=== PATIENT | male | born 1985 | race Caucasian/White ===

== ENCOUNTER 2018-09-29 09:03 | Inpatient (IN) ==
[2018-09-29] MEDS ORDERED: VANCOMYCIN 1 GM/NS 1 GM/250 ML IVPB IV ONE (09:16)
[2018-09-29] MEDS ORDERED: TORADOL IV ONE (09:16)
[2018-09-29 09:48] LABS: URINE SOURCE CLEAN CATCH
[2018-09-29 09:56] LABS: BASO# 0.05 X1000 (0.0-0.2); BASO% 0.3 % (0.0-0.8); EOS# 0.82 X1000 (0.0-0.7); EOS% 4.7 % (0.0-10.0); HEMATOCRIT 40.1 % (42.0-52.0); HEMOGLOBIN 13.2 g/dL (14.0-18.0); IMM GRAN# 0.07 X1000 (0.0-0.04); IMM GRAN% 0.4 % (0.0-0.5); LYMPH# 2.84 X1000 (1.2-3.4); LYMPH% 16.4 % (20.5-51.1); MCH 28.8 PG (27-31); MCHC 32.9 g/dL (33-37); MCV 87.6 FL (81-99); MONO# 1.39 X1000 (0.11-0.59); MPV 9.1 FL (7.4-10.4); NEUT# 12.11 X1000 (1.4-6.5); NEUT% 70.2 % (42.2-75.2); PLT 507 X1000 (130-400); RBC 4.58 XMIL (4.7-6.1); RDW 12.2 % (11.5-14.5); WBC 17.28 X1000 (4.8-10.8)
[2018-09-29 09:59] LABS: BILIRUBIN URINE NEGATIVE (NEGATIVE); BLOOD URINE NEGATIVE (NEGATIVE); COLOR YELLOW; GLUCOSE URINE NEGATIVE (NEGATIVE); KETONE URINE NEGATIVE (NEGATIVE); LEUKOCYTES URINE NEGATIVE (NEGATIVE); NITRITE URINE NEGATIVE (NEGATIVE); PROTEIN URINE TRACE mg/dL (NEGATIVE); SP GRAVITY URINE 1.024; TURBIDITY URINE CLEAR (CLEAR); UR EPITHELIAL CELLS <10 /HPF (<10); URINE BACTERIA NEGATIVE /HPF; URINE RBC <10 /HPF (<10); URINE WBC <10 /HPF (<10); UROBILINOGEN URINE 2 mg/dL (NORMAL)
[2018-09-29 10:10] LABS: AGAP 11; BUN 16 mg/dL (8-22); CHLORIDE 101 mmol/L (98-107); COSMO 277; CREATININE 0.9 mg/dL (0.7-1.2); ESTIMATED GFR > 60; GLUCOSE 104 mg/dL (70-104); POTASSIUM 4.1 mmol/L (3.5-5.1); SODIUM 138 mmol/L (136-145); TCO2 26 mmol/L (25-35)
[2018-09-29 10:29] LABS: C REACTIVE PROT QUANT 88.68 mg/L (0.00-5.00)
[2018-09-29] MEDS ORDERED: CLINDAMYCIN 900 MG/NS 900 MG/50 ML IVPB IV ONE (10:51)
--- NOTE | 2018-09-29 10:51 | Diag Imaging Result Doc PS360 ---
EXAM: US SCROTUM INDICATION: evaluate wound for abscess TECHNIQUE: COMPARISON: None. FINDINGS: The testicles are normal in echotexture with no discrete testicular cyst or mass. The right testicle measures 4.3 cm and the left testicle measures 4.0 cm in the greatest dimensions. Both testicles exhibit normal Doppler flow. The epididymides are unremarkable. There are bilateral small hydroceles. The patient is postop from a vasectomy 3 weeks ago. At the site of the incision on the right, there is soft tissue edema and there is a complex fluid collection measuring 2.0 x 1.4 x 1.6 cm. Abscess versus postsurgical seroma containing proteinaceous debris should be considered. IMPRESSION: 1.Soft tissue edema at the recent vasectomy surgical incision on the right with a small complex fluid collection. Abscess cannot be excluded. Please correlate clinically. 2.Small bilateral hydroceles. 3.The testicles are unremarkable. Electronically signed by Johnnie Tanner 09/29/2018 10:48 AM
[2018-09-29] MEDS ORDERED: CLINDAMYCIN 900 MG/D5W 900 MG/50 ML IVPB IV ONE (11:00)
--- NOTE | 2018-09-29 11:16 | PROVIDER DOCUMENTATION ---
This chart was entered by Ava Hansen Scribe, acting as scribe for Avery Hines MD. HPI-Male Problem - General Chief Complaint: Male Stated Complaint: POST OP COMPLAINT Time Seen by Provider: 09/29/18 09:11 Source: patient Allergies/Adverse Reactions: Patient Allergies Allergy/AdvReac Type Severity Reaction Status Date / Time amoxicillin Allergy Unknown Verified 11/07/17 20:03 Home Medications: Home Medication List Medication Instructions Recorded Confirmed Last Taken Type Bupropion HCl [Bupropion HCl Sr] 400 mg PO DAILY 09/25/16 04/13/18 09/25/16 08:00 History Omeprazole 40 mg PO DAILY 10 Days #10 04/13/18 Unknown Rx capsule.dr - History of Present Illness-Male Nature of Presenting Problem: 33 y/o male presents to ED with testicular swelling, redness, pain, and incision drainage onset 3 weeks ago. Pt is 3 weeks postop from vasectomy by Dr. Cavazos. Pt states he has had several followup appointments due to his symptoms and was put on toradol and bactrim. Pt reports the discharge has become bloody from R posterior incision. Pt is alert and oriented. Location of Complaint: reports: scrotal Radiation: reports: none Quality of Pain: reports: sharp Severity in ED: reports: moderate, severe Onset/Duration: reports: other (3 weeks ago) Timing: reports: still present Context/Activities at Onset: reports: other (3 weeks postop vasectomy) Urinary Symptoms: reports: no symptoms Associated Symptoms: reports: pain/swelling in testicle Associated Symptoms: reports: other (testicular swelling, redness, pain; incision drainage) Similar Symptoms Previously?: No Recently seen or treated by another doctor?: Yes (several FU with Dr. Cavazos) Review of Systems - Adult - REVIEW OF SYSTEMS - ADULT Constitutional: denies: chills, fever Eyes: reports: no symptoms reported Ears, Nose, Mouth & Throat: reports: no symptoms reported Cardiovascular: denies: chest pain, palpitations Respiratory: denies: cough, shortness of breath Gastrointestinal: denies: abdominal pain, diarrhea, nausea, vomiting Genitourinary: reports: discharge (from incision to R posterior scrotum), other (testicular/scrotal swelling, pain, redness) Musculoskeletal: denies: back pain, joint pain Integumentary: reports: no symptoms reported Neurological: denies: dizziness/vertigo, seizure Psychiatric: reports: no symptoms reported Endocrine: reports: no symptoms reported Hematologic/Lymphatic: reports: no symptoms reported Allergic/Immunologic: reports: no symptoms reported All Other Systems: Reviewed and Negative Past History - Adult - PAST MEDICAL HISTORY-ADULT Review of Records: reports: Old Records Reviewed, Nursing Assessment Review, Medications Reviewed Major Childhood Illnesses: reports: denies history Cardiovascular: reports: denies history Respiratory: reports: denies history Gastrointestinal: reports: GERD Obstetrical/Gynecological: reports: denies history Genitourinary: reports: denies history Musculoskeletal: reports: denies history Neurological: reports: denies history Psychiatric: reports: depression, other (ADHD) Endocrine/Immune: reports: denies history Other Conditions: reports: denies history - PRIOR SURGERIES/PROCEDURES Surgical/Procedure History: reports: reviewed, not pertinent, other ([place] teeth extractions) - IMMUNIZATION STATUS Childhood Immunizations: See Nurse Assessment Flu Vaccine: See Nurse Assessment - FAMILY HISTORY Family History: reviewed, not pertinent - SOCIAL HISTORY Smoking: non-smoker Substance Use: none/never Alcohol Use Frequency: never Living Situation: family Physical Exam-General - PHYSICAL EXAM-ADULT Initial Vital Signs Reviewed: Yes - CONSTITUTIONAL General Appearance: appears well, alert, no apparent distress - EYES Eyes: PERRL/EOMI, pink conjunctivae - HEAD, EARS, NOSE, MOUTH & THROAT HENMT: normocephalic/atraumatic, moist mucous membranes, normal ENT inspection - NECK Neck: non-tender, full range of motion - RESPIRATORY Respiratory: chest non-tender, lungs clear, normal breath sounds - CARDIOVASCULAR Cardiovascular: normal peripheral pulses, regular rate, rhythm - GASTROINTESTINAL (ABDOMEN) Abdominal Exam: normal bowel sounds, non tender, soft - GENITOURINARY Male Genitalia: no hernia, erythema (scrotal), scrotal swelling, testicular tenderness, other (firm scrotum; R more firm than L with induration and without fluctuance; 5 mm area of serosanguinous drainage to R posterior scrotum) Rectal Exam: deferred - MUSCULOSKELETAL Back Exam: normal inspection, no CVA tenderness Extremity: normal range of motion, non-tender, normal gait - SKIN Integumentary: normal color, warm/dry - NEUROLOGIC Neurologic: grossly normal - PSYCHIATRIC Psych/Mental Status: normal mood/affect, normal thought content, normal thought process Progress - PLAN OF CARE/RESULTS Progress/Plan/Lab Results: Vital Signs - 8 hr 09/29/18 09:05 Temperature 97.9 F Pulse Rate 94 H Respiratory Rate 18 Blood Pressure 121/76 O2 Sat by Pulse Oximetry 96 Laboratory Results - last 24 hr 09/29/18 09/29/18 09/29/18 09:33 09:33 09:33 WBC 17.28 H RBC 4.58 L Hgb 13.2 L Hct 40.1 L MCV 87.6 MCH 28.8 MCHC 32.9 L RDW Std Deviation 12.2 Plt Count 507 H MPV 9.1 Immature Gran % (Auto) 0.4 Neut % (Auto) 70.2 Lymph % (Auto) 16.4 L [place] % (Auto) 8.0 Eos % (Auto) 4.7 Baso % (Auto) 0.3 Immature Gran # (Auto) 0.07 H Neut # (Auto) 12.11 H Lymph # (Auto) 2.84 [place] # (Auto) 1.39 H Eos # (Auto) 0.82 H Baso # (Auto) 0.05 Sodium 138 Potassium 4.1 Chloride 101 Carbon Dioxide 26 Anion Gap 11 BUN 16 Creatinine 0.9 Estimated GFR/1.73 m2 > 60 BUN/Creatinine Ratio 18 Glucose 104 Calculated Osmolality 277 Calcium 9.0 C-Reactive Prot, Quant 88.68 H Plasma Lactate 0.8 Urine Source Urine Color Urine Turbidity Urine pH Ur Specific [place] Urine Protein Ur Glucose (Stick) Ur Ketones (Stick) Urine Blood Urine Nitrite Urine Bilirubin Urobilinogen Dipstick Urine Leukocytes Urine WBC (Auto) Urine RBC (Auto) U Epithel Cells (Auto) Urine Bacteria (Auto) 09/29/18 09:33 WBC RBC Hgb Hct MCV MCH MCHC RDW Std Deviation Plt Count MPV Immature Gran % (Auto) Neut % (Auto) Lymph % (Auto) [place] % (Auto) Eos % (Auto) Baso % (Auto) Immature Gran # (Auto) Neut # (Auto) Lymph # (Auto) [place] # (Auto) Eos # (Auto) Baso # (Auto) Sodium Potassium Chloride Carbon Dioxide Anion Gap BUN Creatinine Estimated GFR/1.73 m2 BUN/Creatinine Ratio Glucose Calculated Osmolality Calcium C-Reactive Prot, Quant Plasma Lactate Urine Source CLEAN CATCH Urine Color YELLOW Urine Turbidity CLEAR Urine pH 6.0 Ur Specific [place] 1.024 Urine Protein TRACE A Ur Glucose (Stick) NEGATIVE Ur Ketones (Stick) NEGATIVE Urine Blood NEGATIVE Urine Nitrite NEGATIVE Urine Bilirubin NEGATIVE Urobilinogen Dipstick 2 A Urine Leukocytes NEGATIVE Urine WBC (Auto) <10 Urine RBC (Auto) <10 U Epithel Cells (Auto) <10 Urine Bacteria (Auto) NEGATIVE Orders Category Date Time Status Saline Loc NOW Care 09/29/18 09:14 Active US SCROTUM [US] Stat Exams 09/29/18 09:16 Completed BLOOD CULTURE [BLDCUL] Stat Lab 09/29/18 09:30 Received BMP [BASIC METABOLIC PANEL] [CHEM] Stat Lab 09/29/18 09:33 Completed C REACTIVE PROT QUANT [CHEM] Stat Lab 09/29/18 09:33 Completed CBC WITH ELECTRONIC DIFF [HEME] Stat Lab 09/29/18 09:33 Completed LACTATE, PLASMA [CHEM] Stat Lab 09/29/18 09:33 Completed URINALYSIS W/POSS RFLX CULT [URINALYSIS] Stat Lab 09/29/18 09:33 Completed WOUND CULTURE INC GRAM STAIN [RM] Routine Lab 09/29/18 09:40 Received Clindamycin 900 mg/D5w Med 09/29/18 11:00 Active 900 mg in 50 ml IV NOW Ketorolac [Toradol] Med 09/29/18 09:16 Discontinued 30 mg IV NOW ONE Vancomycin 1 gm/Ns Med 09/29/18 09:16 Discontinued 1 gm in 250 ml IV NOW Result Diagrams: 09/29/18 09:33 09/29/18 09:33 - REASSESSMENT Reassessment #1 Time Reassessed: 11:15 Status: improving (decreased pain with meds given in ED. After cultures were obtained, daja Pineda/Telly.) - ULTRASOUND (By Radiology) 1 US Study: Scrotum Impression: Abnormal (FINDINGS: The testicles are normal in echotexture with no discrete testicular cyst or mass. The right testicle measures 4.3 cm and the left testicle measures 4.0 cm in the greatest dimensions. Both testicles exhibit normal Doppler flow. The epididymides are unremarkable. There are bilateral small hydroceles. The patient is postop from a vasectomy 3 weeks ago. At the site of the incision on the right, there is soft tissue edema and there is a complex fluid collection measuring 2.0 x 1.4 x 1.6 cm. Abscess versus postsurgical seroma containing proteinaceous debris should be considered. IMPRESSION: 1.Soft tissue edema at the recent vasectomy surgical incision on the right with a small complex fluid collection. Abscess cannot be excluded. Ple ase correlate clinically. 2.Small bilateral hydroceles. 3.The testicles are unremarkable. Electronically signed by Johnnie Tanner 09/29/2018 10:48 AM) - CONSULTS/PCP/HOSPITALIST Notification #1 *Consult/PCP/Hospitalist*: Dr. Christianson Time Discussed: 11:02 Reason/Comments: Scrotal abscess on US Consult Disposition: Admit #2 Consult: VEL Hernández for Dr. Hu Time Discussed: 11:07 Reason/Comments: Scrotal abscess on US Consult Disposition: Admit Departure - Departure Date of Disposition Decision: 09/29/18 Time of Disposition Decision: 11:10 DIAGNOSIS: Scrotal abscess Postoperative infection Qualifiers: Encounter type: initial encounter Postoperative infection type: unspecified type Qualified Code(s): T81.40XA - Infection following a procedure, unspecified, initial encounter Disposition: ADMITTED INPATIENT 09 Certified Medical Emergency: Emergent Condition: Stable Additional Freetext Instructions: ED Follow Up Instructions: You have been treated by a care provider in the Emergency Department. These instructions are being provided to you so you can have an understanding of how to care for yourself upon discharge. Upon discharge from the Emergency Departmen t, you are responsible for making arrangements for follow-up care by a physician of your choice. Take all prescribed medications as directed. Return to the Emergency Department immediately for any new or worsening symptoms. You may call the Physician Referral phone number at [phone] to obtain a list of Physicians who are taking new patients. Referrals and Follow-Ups: None,PCP [Primary Care Provider] - - Critical Care Note This patient required my direct & personal management of CC.: No Attestation - Physician/ [place] Attestation Patient care was provided by Advanced Practice Provider:: No The physician spent face to face time with patient:: Yes Advanced Practice Provider documentation review:: Supervising physician onsite and consulted in the evaluation and care of this patient. The physician did have a face to face encounter with the patient. This chart was documented by the indicated scribe, (Ava Hansen Scribe) and accurately reflects the services I performed and decisions made by me, Avery Hines MD, as attested by the provider's signature.
[2018-09-29] MEDS ORDERED: TYLENOL PO PRN (11:26)
[2018-09-29] MEDS ORDERED: ZOFRAN IV PRN (11:26)
[2018-09-29] MEDS ORDERED: MORPHINE IV PRN (11:27)
[2018-09-29] MEDS ORDERED: CLINDAMYCIN 900 MG/D5W 900 MG/50 ML IVPB IV SCH (11:30)
[2018-09-29] MEDS ORDERED: VANCOMYCIN IV PER PHARMACY MISC SCH (11:30)
[2018-09-29] MEDS ORDERED: DIPRIVAN 1% ONE (11:59)
[2018-09-29] MEDS ORDERED: MARCAINE 0.5% PF ONE (11:59)
[2018-09-29] MEDS ORDERED: ROBINUL ONE (12:00)
[2018-09-29] MEDS ORDERED: XYLOCAINE-MPF 2% ONE (12:00)
[2018-09-29] MEDS ORDERED: FENTANYL ONE (12:00)
[2018-09-29] MEDS ORDERED: ZOFRAN ONE (12:02)
[2018-09-29] MEDS ORDERED: LR 1,000 ML ONE (13:34)
[2018-09-29] MEDS ORDERED: NORCO-7.5 ONE (13:44)
--- NOTE | 2018-09-29 13:45 | HISTORY AND PHYSICAL ---
CHIEF COMPLAINT: "My vasectomy incision is infected." HISTORY OF PRESENT ILLNESS: This is a 33-year-old gentleman with a history of gastroesophageal reflux disease, who presents to the emergency room complaining of swelling, redness, pain and drainage to his vasectomy incision. He states that he underwent surgery three weeks ago and that within a few days he developed testicular swelling and pain, which has been persistent. He was evaluated at a walk-in clinic and by Dr. Cavazos in his office during this time. He has received Bactrim, which he states he has taken as directed. He has had intermittent drainage from this area. This morning he had an increased amount of drainage that was bloody. Therefore, he presented for evaluation. He does state during the last week he has had fevers that have ranged around 100 to 100.5 for which she has taken Toradol and Tylenol. PAST MEDICAL HISTORY: Gastroesophageal reflux disease and ADHD. PAST SURGICAL HISTORY: [place] teeth extractions and vasectomy. SOCIAL HISTORY: He denies alcohol, tobacco, and illicit drug use. ALLERGIES: Amoxicillin with unknown reaction. HOME MEDICATIONS: Asmanex inhaler, loratadine 10 mg p.o. daily, pantoprazole 40 mg p.o. daily, Bactrim DS 1 b.i.d., Flomax 0.4 mg 1 daily, Toradol 10 mg as directed. REVIEW OF SYSTEMS: Discussed with the patient with pertinent positives stated in the HPI. He denied any syncope, dizziness, chest pain, palpitations, nausea, vomiting, diarrhea, constipation, shortness of breath, cough, PND, orthopnea, any difficulty urinating, change in urine stream, hematuria, dysuria, frequency or urgency. PHYSICAL EXAMINATION: GENERAL: This is a 33-year-old gentleman who is lying on the stretcher in the emergency room in no distress. VITAL SIGNS: Blood pressure is 121/76, heart rate of 94 respirations 18, temperature is 97.9 degrees with room air saturation of 96%. EYES: Pupils are equal, round, and reactive to light. EOMs are intact sclerae are anicteric. HEAD: Normocephalic, atraumatic. MOUTH: Mucous membranes are moist. NECK: Supple. Trachea midline. CARDIOVASCULAR: Regular rate and rhythm. S1, S2 appreciated. He has no lower extremity edema. Calves are nontender bilaterally with peripheral pulses palpable x4 extremities. PULMONARY: Breath sounds are clear. No increased work of breathing noted. Chest rise and fall symmetric respiration. GASTROINTESTINAL: Soft, nontender, and nondistended with bowel sounds in all 4 quadrants. GENITOURINARY: He has bilateral scrotal swelling with erythema. He does have some serosanguineous drainage from his right posterior scrotal incision. SKIN: Warm and dry. NEUROLOGIC: He is alert and oriented. LABS: WBC is 17.2 with hemoglobin 13.2, hematocrit 40 and platelets of 507,000. Sodium is 138, potassium 4.1, BUN 16, creatinine 0.9 with a glucose of 104. CRP is 88.6. Urinalysis is essentially negative. Wound culture and blood cultures are pending. IMAGING STUDIES: Scrotal ultrasound reveals soft tissue edema at the recent vasectomy surgical incision on the right with a complex fluid collection. Abscess cannot be excluded. Small bilateral hydroceles. Testicles are unremarkable. ASSESSMENT: This is a 33-year-old gentleman who presents with a scrotal abscess 3 weeks postop vasectomy. 1. Leukocytosis secondary to abscess. 2. Scrotal abscess. 3. Gastroesophageal reflux disease. PLAN: The patient will be admitted to hospital. He will be NPO until evaluated by Urology. He was given clindamycin and vancomycin in the emergency room. Will continue with clindamycin with vancomycin dosed by pharmacy. We will give morphine 2 mg q.4 hours for pain and Prilosec for his gastroesophageal reflux disease. Further treatments pending hospital course. Dictated by VEL Anderson for Aviva Hu MD cc: VEL Anderson MD William E. Hughes, MD I performed a face to face encounter on the patient. I reviewed all labs and imaging on the patient. I agree with the H&P as dictated. [facility]
[2018-09-29] MEDS ORDERED: VANCOMYCIN 1,800 MG in NS 250 ML IV SCH (14:00)
[2018-09-29] MEDS ORDERED: NORCO-7.5 PO PRN (14:19)
[2018-09-29] MEDS ORDERED: LR 1,000 ML IV SCH ×2 (15:00→22:55)
--- NOTE | 2018-09-29 15:44 | OPERATIVE NOTE ---
PROCEDURE DATE: 09/29/2018 SURGEON: Johnny Christianson MD. PREOPERATIVE DIAGNOSIS: Small right scrotal wall abscess. POSTOPERATIVE DIAGNOSIS: Small right scrotal wall abscess. PROCEDURE PERFORMED: Incise, drain, and irrigate small abscess in the right scrotal wall. ANESTHESIA: General via laryngeal mask. FINDINGS: An approximate 2 to 3 cm abscess cavity in the right anterolateral scrotal wall. INDICATIONS FOR PROCEDURE: This 33-year-old male is about 3 weeks status post partial vasectomy in the office. He states he developed increasing pain and swelling in the right scrotum. He had been on Septra DS twice a day for the last few days but did not get any better and he states got worse. He was seen in the emergency room where a scrotal ultrasound was obtained that revealed a probable abscess cavity in the right wall along with swelling of the right scrotum. Both testes were normal by ultrasound. The planned procedure, benefits versus risks, and possible complications, including, but not limited to, bleeding, infection, recurrence of the abscess, need for wound care postoperatively were discussed. He seems to understand and desires to proceed. DESCRIPTION OF PROCEDURE: After informed consent was obtained from the patient and him receiving IV antibiotics, he was taken the main OR and placed in the supine position. General anesthesia via laryngeal mask was achieved. He was then prepped and draped in the usual sterile fashion for scrotal surgery. A longitudinal skin incision was made over the fluctuant part of the scrotum. A large amount of purulent material returned. This was cultured for aerobic and anaerobic cultures. All debris was removed from the abscess cavity and the cavity irrigated. There were several small bleeding areas that were cauterized with the Bovie electrocautery. The wound was packed with half- inch iodoform gauze. This was covered with plain gauze. A scrotal wrap was placed and a scrotal support was placed. He will be admitted for overnight observation and taught how to do wound care. He tolerated the procedure well. Estimated blood loss less than 5 mL. He was taken to the recovery room in good condition. cc: Johnny Christianson MD
[2018-09-29] MEDS: CLINDAMYCIN 600 MG/D5W 600 MG/50 ML IVPB IV SCH (19:55)
[2018-09-29] MEDS: PEPCID PO SCH (20:57)
[2018-09-30] MEDS: CLINDAMYCIN 600 MG/D5W 600 MG/50 ML IVPB IV SCH (03:48)
[2018-09-30 07:07] LABS: BASO# 0.07 X1000 (0.0-0.2); BASO% 0.7 % (0.0-0.8); EOS# 0.83 X1000 (0.0-0.7); EOS% 8.2 % (0.0-10.0); HEMATOCRIT 37.5 % (42.0-52.0); HEMOGLOBIN 12.3 g/dL (14.0-18.0); IMM GRAN# 0.04 X1000 (0.0-0.04); IMM GRAN% 0.4 % (0.0-0.5); LYMPH# 2.21 X1000 (1.2-3.4); LYMPH% 21.9 % (20.5-51.1); MCHC 32.8 g/dL (33-37); MCV 88.4 FL (81-99); MONO# 0.79 X1000 (0.11-0.59); MONO% 7.8 % (1.7-9.3); NEUT# 6.13 X1000 (1.4-6.5); PLT 458 X1000 (130-400); RBC 4.24 XMIL (4.7-6.1); RDW 12.2 % (11.5-14.5); WBC 10.07 X1000 (4.8-10.8)
[2018-09-30 07:08] LABS: AGAP 11; BUN 11 mg/dL (8-22); CALCIUM 8.4 mg/dL (8.8-10.2); CHLORIDE 105 mmol/L (98-107); COSMO 282; CREATININE 0.9 mg/dL (0.7-1.2); ESTIMATED GFR > 60; GLUCOSE 128 mg/dL (70-104); POTASSIUM 4.3 mmol/L (3.5-5.1); SODIUM 141 mmol/L (136-145); TCO2 25 mmol/L (25-35)
[2018-09-30 07:29] VITALS: BP 116/79
[2018-09-30] MEDS: PEPCID PO SCH (07:59)
[2018-09-30] MEDS ORDERED: WELLBUTRIN SR PO SCH (09:00)
[2018-09-30] MEDS ORDERED: PRILOSEC PO SCH (09:00)
[2018-09-30] MEDS ORDERED: VANCOMYCIN 1 GM/NS 1 GM/250 ML IVPB IV SCH (17:30)
== END 2018-09-30 08:43 | disposition home or self-care (01) | DRG 858 ==
LOC: ED 09:03 → 4N 12:14 → SUATTDRO 12:14
PROVIDERS: ADMIT Urology; ATTEND Urology
CPT/HCPCS: 76870; 80048; 81001; 83605; 85025; 86140; 87040; 87070; 87075; 87077; 87186; 94799; 96365; 96366; 96367; 96375; 99285; A9270; J1885; J2405; J3010; J3370; J7050; J7120; S0020; S0077